=== PATIENT | male | born 1975 | race Caucasian/White ===

== ENCOUNTER 2018-08-17 08:30 | Emergency (ER) | payer OTHER ==
[~2018-08-17] VITALS: Ht 165.1 cm; Wt 59.0 kg
[2018-08-17 08:31] VITALS: BP 141/82
--- NOTE | 2018-08-17 08:31 | NUR ---
PT AMBULATES TO BED 11
--- NOTE | 2018-08-17 08:36 | NUR ---
A 43 M BROUGHT SELF DUE TO CHEST PAIN X 1 WEEK. PT. STATES " ABOUT A WEEK AGO THE PAIN STARTED IT COMES ON AND OFF I FEEL LIKE SOMETHING IS STUCK ON MY THROAT AND MY LEFT ARM HAS A PINCHING SENSATION". PT. DENIES ANY N/V/D. DENIES ANY SOB. SKIN WARM AND DRY TO TOUCH. PT. ABLE TO SPEAK IN FULL AND COMPLETE SENTENCES. RR EVEN AND UNLABORED. 5/10 INTERMITTENT CHEST PAIN WITH PINCHING SENSATION IN L ARM. SAFETY PRECAUTIONS IMPLEMENTED. ER MD HERRERA MADE AWARE. WILL CONTINUE TO MONITOR.
[2018-08-17] MEDS ORDERED: IPRATROPIUM 0.02% 0.5 MG/2.5 ML NEBU INH ONE (08:55)
[2018-08-17] MEDS ORDERED: predniSONE 20 MG TAB PO ONE (08:55)
[2018-08-17] MEDS ORDERED: ALBUTEROL 0.083% 2.5 MG/3 ML NEBU INH ONE (08:55)
--- NOTE | 2018-08-17 08:55 | NUR ---
CALLED RT FOR TREATMENT
--- NOTE | 2018-08-17 09:00 | NUR ---
X RAY AT BEDSIDE AT THIS TIME
--- NOTE | 2018-08-17 09:04 | NUR ---
ADMITTING DX: CHETS PAIN HX: ASTHMA AWAKE AND ALER RESPONSIVE TO INSTRUCTOR ROBOTICS VERBAL COMMANDS C/O SOB NOT INDUCED BY HX EDUCATION PROVIDED TO PATIENT WITH ACKNOWLEDGEMENT ON HHN THERAPY AND RESPIRATORY DRUGS HHN THERAPY GIVEN ORDERED ENCOURAGED PATIENT FOR INTERMITENT DEEP BREATHING DURING THERAPY TOLERATED WELL WITHOUT INCIDENT
--- NOTE | 2018-08-17 09:19 | NUR ---
RT AT BEDSIDE AT THIS TIME.
--- NOTE | 2018-08-17 10:00 | NUR ---
PT. RESTING COMFORTABLY IN BED, RR EVEN AND UNLABORED. VSS.
[2018-08-17 10:25] VITALS: BP 122/64
--- NOTE | 2018-08-17 10:25 | NUR ---
Patient discharged with v/s stable. Written and verbal after care instructions given and explained. Patient alert, oriented and verbalized understanding of instructions. Ambulatory with steady gait. All questions addressed prior to discharge. ID band removed. Patient advised to follow up with PMD. Rx of ALBUTEROL INH,PREDNISONE,AEROCHAMBER given. Patient educated on indication of medication including possible reaction and side effects. Opportunity to ask questions provided and answered.
== END 2018-08-17 10:25 | disposition home or self-care (01) ==
LOC: MED 08:30
DX: J20.9 Acute bronchitis, unspecified (principal); R03.0 Elevated blood-pressure reading, without diagnosis of hypertension
CPT/HCPCS: 71045; 93005; 94640; 99284; J7512; J7613; J7644; Q0092

== ENCOUNTER 2018-09-02 23:14 | Emergency (ER) | payer OTHER ==
[~2018-09-02] VITALS: Ht 165.1 cm; Wt 59.0 kg
[2018-09-02 23:18] VITALS: BP 123/77
[2018-09-02] MEDS ORDERED: KETOROLAC 60 MG/2 ML VIAL IM ONE (23:35)
[2018-09-03 00:51] VITALS: BP 111/62
== END 2018-09-03 00:50 | disposition home or self-care (01) ==
LOC: MED 23:14
DX: S20.212A Contusion of left front wall of thorax, initial encounter (principal); J45.909 Unspecified asthma, uncomplicated; W18.39XA Other fall on same level, initial encounter; Y93.89 Activity, other specified; Y92.89 Other specified places as the place of occurrence of the external cause; Y99.8 Other external cause status
CPT/HCPCS: 96372; 99283; J1885

== ENCOUNTER 2022-06-22 20:34 | Inpatient (IN) | payer OTHER ==
[~2022-06-22] VITALS: Ht 170.2 cm; Wt 61.2 kg
[2022-06-22 20:39] VITALS: BP 170/90
--- NOTE | 2022-06-22 20:42 | NUR ---
TO LOBBY A/W BED AMBULATORY
--- NOTE | 2022-06-22 20:55 | NUR ---
PT AMBULATED TO BED #7
--- NOTE | 2022-06-22 21:02 | NUR ---
47 / M BIB SELF SEVERE STOMACH/VOMITING X 3 DAYS / PT STATES BLACK STOOL. STOOL IS RUNNY , WATERY. PT STATES BURNING PAIN 06/18. PT TOOK PEPTO BISMOL, GATORADE,WATER BUT WILL EVENTUALLY THROW IT UP. SKIN IS PINK/WARM/DRY; AAOX4 WITH EVEN AND STEADY GAIT; LUNGS CLEAR BL; HR EVEN AND REGULAR; PT STATES FEVER OF 99.9 AND SOME CP, DENIES SOB, OR COUGH AT THIS TIME; VSS; HOB ELEVATED; BEDRAILS UP X2; BED DOWN. PT DRINKS MALT LIQUOR X 4 CANS A DAY X 10 YEARS DENIES PMH NO ALLERGIES
--- NOTE | 2022-06-22 21:05 | NUR ---
ERMD EXAMINING PT
[2022-06-22] MEDS ORDERED: PANTOPRAZOLE 40 MG INJ VIAL IVP ONE (21:45)
[2022-06-22] MEDS ORDERED: NACL 0.9% 1,000 ML IV ONE (21:45)
[2022-06-22] MEDS ORDERED: MORPHINE SULFATE 2 MG/ML SYR IVP ONE (21:45)
[2022-06-22] MEDS ORDERED: ONDANSETRON 4 MG/2 ML VIAL IVP ONE (21:45)
[2022-06-22 22:14] LABS: BASOPHILS % (AUTO) 0.4 % (0.0-2.0); EOSINOPHILS % (AUTO) 0.1 % (0.0-4.0); HEMATOCRIT 45.7 % (36-52); HEMOGLOBIN 15.9 g/dL (12.0-18.0); LYMPHOCYTES # (AUTO) 0.8 K/uL (2.0-11.5); LYMPHOCYTES % (AUTO) 7.7 % (20.5-51.1); MEAN CORPUSCULAR HEMOGLOBIN 34 pg (27-31); MEAN CORPUSCULAR HGB CONC 35 g/dL (33-37); MEAN CORPUSCULAR VOLUME 96.7 fL (80-94); MONOCYTES # (AUTO) 0.7 K/uL (0.8-1.0); MONOCYTES % (AUTO) 6.7 % (1.7-9.3); NEUTROPHILS # (AUTO) 9.3 K/uL (1.8-7.7); NEUTROPHILS % (AUTO) 85.1 % (42.2-75.2); PLATELET COUNT (AUTO) 281 K/uL (140-450); RED BLOOD CELL COUNT(AUTO) 4.72 MIL/uL (4.20-6.10); RED CELL DISTRIBUTION WIDTH 12.9 % (11.6-13.7); WHITE BLOOD COUNT (AUTO) 10.9 K/uL (4.8-10.8)
[2022-06-22 22:40] LABS: ALBUMIN 3.4 g/dL (3.4-5.0); ANION GAP 12.6 (8-16); ASPARTATE AMINOTRANSFERASE 9 U/L (15-37); CARBON DIOXIDE 29.6 mmol/L (21-32); CHLORIDE 95 mmol/L (98-107); GFR ARICAN-AMERICAN 104 mL/min (>90); GLUCOSE 139 mg/dL (74-106); LIPASE 50 U/L (73-393); POTASSIUM 3.2 mmol/L (3.5-5.1); SODIUM SERUM 134 mmol/L (136-145); UREA NITROGEN, BLOOD 11 mg/dL (7-18)
--- NOTE | 2022-06-22 22:47 | NUR ---
PT TAKEN TO CT VIA REID
[2022-06-22 23:21] LABS: APPEARANCE,URINE CLEAR (CLEAR); BILIRUBIN,URINE 1+ (NEGATIVE); BLOOD, URINE 2+ (NEGATIVE); COLOR,URINE YELLOW (YELLOW); LEUKOCYTE ESTERASE ,URINE NEGATIVE (NEGATIVE); NITRITE, URINE NEGATIVE (NEGATIVE); UGLUCOSE NEGATIVE (NEGATIVE)
[2022-06-22 23:29] LABS: RBC,URINE 0-5 /HPF (0-5); WBC,URINE 0-5 /HPF (0-5)
[2022-06-22 23:39] LABS: BARBITURATE, URINE NEGATIVE ng/ml (NEG <=200); BENZODIAZEPINE, URINE M ng/mL (NEG <=200); CANNABINOID, URINE NEGATIVE ng/mL (NEG <=50); COCAINE, URINE NEGATIVE ng/mL (NEG <=300); OPIATE, URINE POSITIVE ng/mL (NEG <=2000); PHENCYCLIDINE SCREEN,URINE NEGATIVE ng/mL (NEG <=25)
[2022-06-23] MEDS ORDERED: PIPERACILLIN/TAZOBACTAM 3.375 GM in DEXTROSE 5% 50 ML IV ONE (00:30)
[2022-06-23] MEDS ORDERED: NACL 0.9% 1,000 ML IV ONE ×2 (00:30)
[2022-06-23] MEDS ORDERED: KETOROLAC 30 MG/ML VIAL IVP ONE (00:55)
[2022-06-23] MEDS ORDERED: PIPERACILLIN/TAZOBACTAM 3.375 GM VIAL IV ONE (01:02)
--- NOTE | 2022-06-23 02:00 | NUR ---
Patient appears to be resting comfortably in bed. Vital Signs within normal limits. Respirations even and unlabored.
[2022-06-23] MEDS ORDERED: ONDANSETRON 4 MG/2 ML VIAL IVP PRN (02:35)
[2022-06-23] MEDS ORDERED: ACETAMINOPHEN 325 MG TAB PO PRN (02:35)
[2022-06-23] MEDS ORDERED: POTASSIUM CHLORIDE 10 MEQ TABER PO SCH (02:50)
[2022-06-23] MEDS ORDERED: POTASSIUM CHLORIDE 10 MEQ in NACL 0.9% 1,000 ML IV SCH (02:50)
[2022-06-23] MEDS: NACL 0.9% 1,000 ML IV SCH ×3 (03:35→22:35)
[2022-06-23 04:00] VITALS: BP 103/57
--- NOTE | 2022-06-23 04:00 | NUR ---
Patient will be admitted to care of DR. DENSON. Admited to MED SURG. Will go to room 122B. Belongings list completed. Report to BILL.
--- NOTE | 2022-06-23 04:15 | NUR ---
RECEIVED REPORT FROM ER NURSE FOR CONTINUITY OF CARE. PATIENT IS ON ROOM AIR, BREATHING NORMAL WITH SYMMETRICAL RISE AND FALL OF CHEST. IV IS 18G LAC, PATIENT RUNNING NS 100ML. PATIENT IS A&O X4. ADMISSION VITALS ARE: 97.5 TEMP, HR 58, BP 103/57, O2 97, RR 16. BED IS IN LOWEST POSITION, WHEELS LOCKED, CALL LIGHT IN PLACE. WILL CONTINUE TO OBSERVE.
--- NOTE | 2022-06-23 04:19 | NUR ---
The patient's care was reviewed and supervised by Cathie Hinkle RN.
[2022-06-23] MEDS: metroNIDAZOLE 500 MG/NS PREMIX 100 ML IV SCH ×3 (05:34→20:45)
--- NOTE | 2022-06-23 05:50 | NUR ---
ADMINISTERED IVPB TO PATIENT. PATIENT STATED PAIN OF 6/10. PATIENT'S BP WAS TOO LOW FOR MORPHINE, GAVE TYLENOL INSTEAD. PATIENT ALSO RECEIVED 0250 POTASSIUM MEDICATION (KDUR 20MEQ) ORDERED BY PHYSICIAN. PATIENT TOLERATED MEDICATION WELL. BREATHING WAS NORMAL. WILL CONTINUE TO OBSERVE PATIENT.
[2022-06-23] MEDS ORDERED: LORazepam 1 MG TAB PO PRN (07:20)
--- NOTE | 2022-06-23 07:50 | NUR ---
ENDORSED CONTINUITY OF CARE TO DAY SHIFT NURSE. PATIENT IS STABLE.
--- NOTE | 2022-06-23 07:51 | NUR ---
RECEIVED REPORT FORM DOUGHNUT GLAZIER NURSE FOR CONTINUITY OF CARE. PT IS SLEEPING, EASILY AROUSABLE BY VERBAL STIMULI. RESPIRATIONS EVEN AND UNLABORED ON RA. NO DISTRESS NOTED. A&O4, ABLE TO COMMUNICATE NEEDS. PT ON NPO. PT AND PHOTOGEOLOGIST MADE AWARE AND SIGNS IN PLACE. IV SITE AT LAC 18G RUNNING NS [id number]. CALL LIGHT WITHIN REACH. SAFETY PRECAUTIONS IN PLACE. WILL CONTINUE TO MONITOR.
[2022-06-23 08:00] VITALS: BP 97/58
--- NOTE | 2022-06-23 09:06 | NUR ---
PATIENT HAS BEEN SCREENED AND CATEGORIZED HIGH NUTRITION RISK. PATIENT WILL BE SEEN WITHIN 1-2 DAYS OF ADMISSION. 06/23/22-06/24/22 RECEIVED REFERRAL FOR NAUSEA, VOMITING, DIARRHEA +3 DAYS. REVIEWED BY BABITA CARRANZA RD
--- NOTE | 2022-06-23 10:15 | NUR ---
IV ABX ADMINISTERED BY GABRIELA REID. NO ADVERSE REACTION NOTED. WILL CONTINUE TO MONITOR.
--- NOTE | 2022-06-23 12:40 | NUR ---
PT SEEN AND CHECKED BY DR RODRIGUEZ. DR RODRIGUEZ ORDERED CT FOR DRAINAGE OF ABSCESS AND CLEAR LIQUID DIET.
--- NOTE | 2022-06-23 13:25 | NUR ---
IV ABX ADMINISTERED BY GABRIELA REID. NO ADVERSE REACTION NOTED. WILL CONTINUE TO MONITOR.
--- NOTE | 2022-06-23 13:50 | NUR ---
SPOKE TO DR CHAMP CANTU OF RADIOLOGY REGARDING THE PROCEDURE ORDERED BY . DR CANTU SAID HE'LL SPEAK TO DR RODRIGUEZ BECAUSE THE PROCEDURE IS NOT POSSIBLE BECAUSE OF JUST TOO SMALL ABSCESS SEEN. DR CANTU SAID HE'LL GET BACK TO THE NURSE FOR UPDATE.
--- NOTE | 2022-06-23 15:46 | NUR ---
DC PLANNING SW MET WITH PATIENT AT BEDSIDE TO COMPLETE ASSESSMENT. PT REPORTS LIVING AT THE ADDRESS LISTED WITH HIS FAMILY, PATIENT HAS RESIDED AT ADDRESS FOR 5 YEARS. PT IDENTIFIES EMERGENCY CONTACT AND MDM GIULIANA BLANC (PARTNER) [phone]. PT DENIES AD IN PLACE AND ACCEPTED PACKET PROVIDED BY SW. PT REPORTS BEING INCONSISTENT WITH MEETING WITH PCP; LAST VISIT 2 YRS AGO. SW SPOKE WITH PATIENT ABOUT THE IMPORTANCE OF FOLLOW UP CARE, PATIENT WAS RECEPTIVE AND PROVIDED SW WITH PERMISSION TO SCHEDULE FOLLOW UP APPT, ONCE CLEARED FOR DC. PATIENT REPORTS NOT TAKING MEDICATION IT IS NOT NEEDED. PT DENIES BARRIERS IN ACCESSING NEEDED MEDICATION AND REPORTS PICKING UP MEDICATION FROM [facility] IN [place], WHEN NEEDED. PATIENT REPORTS ADEQUATE FOOD SOURCE AND DENIES FOOD INSECURITY. PT INDEPENDENT IN ALL ACTIVITIES AND DENIES USE OF DME.NO ASSISTANCE WITH ADL'S REQUIRED. PT DENIES MENTAL HEALTH HX. PT REPORTS USP ALCOHOL USE; 10+YRS. PATIENT REPORTS BEING SOBER FOR 6 MONTHS, 5 YEARS AGO. SW PROVIDED PATIENT WITH PSYCHOEDUCATION ON [employer] ALCOHOL USE. PATIENT WAS RECEPTIVE AND ACCEPTED ALCOHOL/SUBSTANCE USE RESOURCES. PT REPORTS DC PLAN IS TO RETURN HOME ONCE CLINICALLY STABLE. PATIENT INQUIRED ON TRANSPORTATION HOME. SW ENCOURAGED PATIENT TO NOTIFY NURSE WHO WILL SET UP TRANSPORTATION ONCE CLEARED FOR DC. Addendum: 06/27/22 at 1224 by Kadie Lopez SW OUTREACHED TO PATIENTS PCP OFFICE AT [phone] AND SPOKE WITH DARRELL. APPT WAS SCHEDULED FOR 07/04/22 AT 3:[address] [place] [id number] [facility] [id number]. PATIENT WAS PROVIDED WITH APPT CARD WITH APPT DETAILS THAT INCLUDED; DATE, TIME, ADDRESS, PHONE NUMBER AND
[2022-06-23 16:00] VITALS: BP 113/59
[2022-06-23] MEDS: MORPHINE SULFATE 2 MG/ML SYR IVP PRN ×2 (16:54→23:10)
--- NOTE | 2022-06-23 16:54 | NUR ---
PT COMPLAINED OF ABD PAIN 07/19. PRN PAIN MED ADMINISTERED BY GABRIELA REID. NO ADVERSE REACTION NOTED. WILL CONTINUE TO MONITOR.
--- NOTE | 2022-06-23 18:56 | NUR ---
PT ATE DINNER. PT STATED HE STILL HAS ABD PAIN WORST WHEN HE MOVES AND FELLING BLOATED BECAUSE OF THE FOOD BUT MORPHINE WORKS WELL FOR HIS PAIN. WILL ENDORSE TO ELECTRIC SWITCH TESTER NURSE.
--- NOTE | 2022-06-23 19:54 | NUR ---
ENDORSED PT TO EARLY INTERVENTION SPECIALIST NURSE FOR CONTINUITY OF CARE. ALL NEEDS MET THROUGHOUT SHIFT. PT IS STABLE.
--- NOTE | 2022-06-23 20:00 | NUR ---
RECEIVED BEDSIDE REPORT FROM DAY NURSE REGARDING THE PT FOR CONTINUITY OF CARE. PT A/A/OX4, LAYING IN BED WATCHING TV. PT NOT IN ANY DISTRESS AND NO COMPLAIN AT THIS TIME. PT SITTING UPRIGHT IN BED WATCHING TV. IV FLUID INFUSING ORDERED. DISCUSSED POC WITH THE PT AND PT VERBALIZED UNDERSTANDING . CALL LIGHT WITHIN REACH. WILL CONTINUE OBSERVATION.
[2022-06-23] MEDS: LORazepam 1 MG TAB PO SCH (20:49)
--- NOTE | 2022-06-23 22:00 | NUR ---
ALL DUE MEDS GIVEN ORDERED. NO ADVERSE DRUGS REACTION NOTED AND NO COMPLAIN FROM THE PATIENT. WILL CONTINUE OBSERVATION.
[2022-06-24] VITALS: BP 112/66
--- NOTE | 2022-06-24 | NUR ---
PATIENT VITALS SIGNS STABLE, AFEBRILE, SATING 96% ON RA. NO COMPLAIN OF PAIN AT THIS TIME. CALL LIGHT WITHIN REACH. WILL CONTINUE OBSERVATION.
--- NOTE | 2022-06-24 02:00 | NUR ---
PATIENT ASLEEP AT THIS TIME. VISIBLE CHEST RISE AND FALL NOTED. PT NOT IN ANY DISTRESS. WILL CONTINUE OBSERVATION.
--- NOTE | 2022-06-24 04:00 | NUR ---
MADE ROUNDS AGAIN , PT STILL ASLEEP AND NOT IN ANY DISTRESS. WILL CONTINUE OBSERVATION
[2022-06-24] MEDS: NACL 0.9% 1,000 ML IV SCH ×3 (04:25→19:30)
[2022-06-24] MEDS: metroNIDAZOLE 500 MG/NS PREMIX 100 ML IV SCH ×3 (04:25→20:25)
[2022-06-24] MEDS: LORazepam 1 MG TAB PO SCH ×3 (04:26→20:25)
[2022-06-24 05:47] LABS: BASOPHILS % (AUTO) 0.5 % (0.0-2.0); EOSINOPHILS % (AUTO) 0.6 % (0.0-4.0); HEMATOCRIT 36.3 % (36-52); HEMOGLOBIN 12.4 g/dL (12.0-18.0); LYMPHOCYTES # (AUTO) 0.8 K/uL (2.0-11.5); LYMPHOCYTES % (AUTO) 11.3 % (20.5-51.1); MEAN CORPUSCULAR HEMOGLOBIN 34 pg (27-31); MEAN CORPUSCULAR HGB CONC 34 g/dL (33-37); MEAN CORPUSCULAR VOLUME 98.4 fL (80-94); MONOCYTES # (AUTO) 0.6 K/uL (0.8-1.0); MONOCYTES % (AUTO) 9.1 % (1.7-9.3); NEUTROPHILS # (AUTO) 5.5 K/uL (1.8-7.7); NEUTROPHILS % (AUTO) 78.5 % (42.2-75.2); PLATELET COUNT (AUTO) 257 K/uL (140-450); RED BLOOD CELL COUNT(AUTO) 3.69 MIL/uL (4.20-6.10); RED CELL DISTRIBUTION WIDTH 12.6 % (11.6-13.7)
--- NOTE | 2022-06-24 06:18 | NUR ---
NO ACUTE EVENT THROUGHOUT THE NIGHT. PT STABLE AND NOT IN ANY DISTRESS. NO COMPLAIN AT THIS TIME. ALL NEEDS ATTENDED. WILL ENDORSE THE PATIENT TO THE ONCOMING NURSE FOR CONTINUITY OF CARE.
[2022-06-24 06:38] LABS: ALBUMIN 2.3 g/dL (3.4-5.0); ANION GAP 12.5 (8-16); CARBON DIOXIDE 25.8 mmol/L (21-32); CREATININE 0.8 mg/dL (0.6-1.3); MAGNESIUM 1.9 mg/dL (1.8-2.4); PHOSPHORUS 2.3 mg/dL (2.5-4.9); POTASSIUM 3.3 mmol/L (3.5-5.1); TOTAL BILIRUBIN 1.5 mg/dL (0.0-1.0)
--- NOTE | 2022-06-24 07:20 | NUR ---
ENDORSED PATIENT TO THE ONCOMING NURSE. PATIENT STABLE AND NOT IN DISTRESS. SIGNING OFF.
--- NOTE | 2022-06-24 07:30 | NUR ---
RECEIVED REPORT FROM ASSISTANT MANAGER RETAIL NURSE FOR CONTINUITY OF CARE, POC DISCUSSED. PT IS ASLEEP IN BED ON RA WITH CHEST RISING AND FALLING EVEN AND UNLABORED. NO S/S OF ACUTE DISTRESS. RUNNING NS @100. ALL SAFETY MEASURES IN PLACE, CALL LIGHT WITHIN REACH. WILL CONTINUE TO MONITOR.
[2022-06-24 08:00] VITALS: BP 105/63
[2022-06-24] MEDS: FOLIC ACID 1 MG TAB PO SCH (09:10)
[2022-06-24] MEDS: MULTIVITAMIN 1 TAB PO SCH (09:10)
[2022-06-24] MEDS: THIAMINE 100 MG TAB PO SCH (09:10)
[2022-06-24] MEDS: MORPHINE SULFATE 2 MG/ML SYR IVP PRN ×3 (09:12→19:40)
--- NOTE | 2022-06-24 09:12 | NUR ---
SCOTT MEDICATION ADMINISTERED PER MD ORDER, PT TOLERATED ADMINISTRATION. IV PATENT AND INTACT. ASSESS BP PRIOR TO ADMINISTRATION OF PAIN MEDICATION OF 07/19. PT STABLE, WILL REASSESS AFTER ADMINISTRATION. EDUCATION PROVIDED TO PT REGARDING THE PAIN MEDICATION, PT VERBALIZED UNDERSTANDING. ASSESSMENT COMPLETE OF PT, SEE INTERVENTIONS. ALL NEEDS ARE CURRENTLY BEING MET, ALL SAFETY MEASURES IN PLACE, CALL LIGHT WITHIN REACH. WILL CONTINUE TO MONITOR.
--- NOTE | 2022-06-24 10:12 | NUR ---
REASSESSED PT PAIN AND BLOOD PRESSURE. PT REPORTS PAIN TOLERABLE AND BLOOD PRESSURE STABLE. ALL SAFETY MEASURES IN PLACE, CALL LIGHT WITHIN REACH. WILL CONTINUE TO MONITOR.
--- NOTE | 2022-06-24 12:34 | NUR ---
SCOTT MEDICATION ADMINISTERED PER MD ORDER, IV PATENT AND INTACT. ASSESS BLOOD PRESSURE PRIOR TO ADMINISTRATION, STABLE. PT REPORTS ALL NEEDS CURRENTLY BEING MET. ALL SAFETY MEASURES IN PLACE, CALL LIGHT WITHIN REACH. WILL CONTINUE TO MONITOR.
--- NOTE | 2022-06-24 13:19 | NUR ---
REASSESSED PT, PT STABLE WITH FAMILY AT BEDSIDE.
--- NOTE | 2022-06-24 14:32 | NUR ---
06/24/22 RD INITIAL ASSESSMENT COMPLETED PLEASE REFER TO NUTRITION ASSESSMENT UNDER CARE ACTIVITY FOR ESTIMATED NUTRITIONAL NEEDS. 1. WHEN/ IF MEDICALLY APPROPRIATE RECOMMEND LOW FIBER DIET - CONTINUE CLEAR LIQUID DIET UNTIL FURTHER NOTICE 2. RD WILL CONTINUE TO MONITOR PO INTAKE 3. RD TO FOLLOW-UP 3-5 DAYS, MODERATE RISK REVIEWED BY BABITA CARRANZA RD
--- NOTE | 2022-06-24 14:39 | NUR ---
PT CALLED REPORTING NEEDING PAIN MEDICATION, EDUCATION PROVIDED REGARDING LOW BP AND JUST RECEIVING SCOTT ATIVAN. STATED WE WILL REASSESS HIS BLOOD PRESSURE AT 1530, IF STABLE, WILL ADMINISTER PAIN MEDICATION. PT VERBALIZED UNDERSTANDING AND AGREED TO PLAN OF CARE. ALL SAFETY MEASURES IN PLACE, CALL LIGHT WITHIN REACH. WILL CONTINUE TO MONITOR.
--- NOTE | 2022-06-24 15:56 | NUR ---
PRN PAIN MEDICATION ADMINISTERED PER MD ORDER, PT TOLERATED ADMINISTRATION. VSS. IV PATENT AND INTACT. MD AT BEDSIDE ASSESSING PT. POC DISCUSSED. ALL SAFETY MEASURES IN PLACE, CALL LIGHT WITHIN REACH. WILL CONTINUE TO MONITOR.
[2022-06-24 16:00] VITALS: BP 103/64
--- NOTE | 2022-06-24 17:14 | NUR ---
PT STABLE IN BED WITH NO ACUTE S/S OF DISTRESS, ALL SAFETY MEASURES IN PLACE, CALL LIGHT WITHIN REACH. WILL CONTINUE TO MONITOR.
--- NOTE | 2022-06-24 18:41 | NUR ---
ALL NEEDS HAVE BEEN MET THROUGHOUT THE SHIFT, ALL SAFETY MEASURES IN PLACE, CALL LIGHT WITHIN REACH. WILL ENDORSE TO FIRE CONTROL TECHNICIAN NURSE.
--- NOTE | 2022-06-24 19:05 | NUR ---
RECEIVED PATIENT IN BED, AWAKE, ALERT AND ORIENTED. NO ACUTE RESPIRATORY DISTRESS NOTED. SKIN WARM AND DRY TO TOUCH. BED IN THE LOWEST AND LOCKED POSITION FOR SAFETY, CALL LIGHT IN REACH.
--- NOTE | 2022-06-24 19:40 | NUR ---
COMPLAINING OF 8/10 ABDOMINAL PAIN, MEDICATED ORDERED.
--- NOTE | 2022-06-24 19:44 | NUR ---
K-3.[address] DENSON, NEW ORDER GIVEN AND WILL CARRY OUT.
[2022-06-24] MEDS ORDERED: POTASSIUM CHLORIDE 10 MEQ TABER PO ONE (19:45)
[2022-06-24 20:00] VITALS: BP 109/75
--- NOTE | 2022-06-24 20:40 | NUR ---
RE-ASSESSED FOR PAIN, PT DENIES PAIN AT THIS TIME. WATCHING TV. CALL LIGHT WITHIN REACH.
--- NOTE | 2022-06-25 00:02 | NUR ---
PATIENT IS RESTING COMFORTABLY IN BED. NO S/SX OF PAIN NOR DISCOMFORT. CALL LIGHT IN REACH.
--- NOTE | 2022-06-25 02:06 | NUR ---
ROUNDING DONE. PATIENT IS ASLEEP. BREATHING EVEN AND UNLABORED. CALL LIGHT WITHIN REACH.
[2022-06-25 04:00] VITALS: BP 123/71
[2022-06-25] MEDS: LORazepam 1 MG TAB PO SCH ×3 (04:05→21:25)
[2022-06-25] MEDS: metroNIDAZOLE 500 MG/NS PREMIX 100 ML IV SCH ×3 (04:05→21:24)
--- NOTE | 2022-06-25 06:14 | NUR ---
PATIENT IS ASLEEP. NO S/SX OF PAIN NOR DISCOMFORT. ALL NEEDS ATTENDED TO. SAFETY PRECAUTIONS MAINTAINED DURING THE SHIFT, CALL LIGHT REMAINED WITHIN REACH.
[2022-06-25] MEDS: NACL 0.9% 1,000 ML IV SCH ×2 (06:48→21:34)
--- NOTE | 2022-06-25 07:30 | NUR ---
RECEIVED REPORT FROM ASSOCIATE RELATIONS SPECIALIST FOR CONTINUITY OF CARE, ASSOCIATE RELATIONS SPECIALIST EVENTS REVIEWED. NO CHANGE IN POC. PT STABLE IN BED WITH NO S/S OF DISTRESS ON ROOM AIR. ALL SAFETY MEASURES IN PLACE, CALL LIGHT WITHIN REACH. WILL CONTINUE TO MONITOR.
[2022-06-25 08:00] VITALS: BP 123/82
[2022-06-25] MEDS: MULTIVITAMIN 1 TAB PO SCH (09:19)
[2022-06-25] MEDS: THIAMINE 100 MG TAB PO SCH (09:19)
[2022-06-25] MEDS: MORPHINE SULFATE 2 MG/ML SYR IVP PRN ×3 (09:19→21:26)
[2022-06-25] MEDS: FOLIC ACID 1 MG TAB PO SCH (09:19)
--- NOTE | 2022-06-25 09:20 | NUR ---
SCOTT MEDICATION ADMINISTERED PER MD ORDER, PT TOLERATED ADMINISTRATION. BP ASSESSED FOR PAIN MEDICATION, PT REPORTED 8/10 PAIN. WILL MEDICATE PER MD ORDER. PT REPORTS ALL OTHER NEEDS ARE BEING MET. ALL SAFETY MEASURES IN PLACE, CALL LIGHT WITHIN REACH. WILL CONTINUE TO MONITOR.
--- NOTE | 2022-06-25 12:15 | NUR ---
SCOTT MEDICATION ADMINISTERED PER MD ORDER, PT TOLERATED ADMINISTRATION. PT AT BEDSIDE, ALL QUESTIONS ANSWERED. PT STABLE WITH NO COMPLAINTS AT THIS TIME. ALL NEEDS ARE MET AT THIS TIME. ALL SAFETY MEASURES IN PLACE, CALL LIGHT WITHIN REACH. WILL CONTINUE TO MONITOR.
--- NOTE | 2022-06-25 13:45 | NUR ---
CALLED CT REGARDING ORDER FOR ABD/PELVIS CT WITH ORAL CONTRAST. STATED THEY HAVE A COUPLE MORE PROCEDURES AND WHEN THE PT DRINKS THE ORAL CONTRAST, IT WILL BE 2 HOURS AND HE CAN GET THE SCAN.
--- NOTE | 2022-06-25 14:22 | NUR ---
ASSESSED PT BLOOD PRESSURE, 113/77, PT REPORTS PAIN. MEDICATED PER MD ORDER, PT TOLERATED ADMINISTRATION. IV PATENT AND INTACT. POC DISCUSSED. ALL SAFETY MEASURES IN PLACE, CALL LIGHT WITHIN REACH. WILL CONTINUE TO MONITOR.
--- NOTE | 2022-06-25 15:11 | NUR ---
MD AT BEDSIDE, PT STABLE WITH AT BEDSIDE. ALL QUESTIONS ANSWERED. ALL SAFETY MEASURES IN PLACE, CALL LIGHT WITHIN REACH. WILL CONTINUE TO MONITOR.
[2022-06-25 16:00] VITALS: BP 130/79
--- NOTE | 2022-06-25 18:12 | NUR ---
RADIOLOGY AT BEDSIDE, GIVING PT THE CONTRAST, STATED HE WILL COMEBACK IN 2 HOURS TO PREFORM THE SCAN. WILL ENDORSE TO COLOR SPRAYER.
--- NOTE | 2022-06-25 18:22 | NUR ---
CALLED RADIOLOGY TO CLARIFY IF PT CAN HAVE HIS DINNER TRAY WITH THE ORAL CONTRAST, STATED THAT YES HE IS ALLOWED TO HAVE THE DINNER TRAY.
--- NOTE | 2022-06-25 18:43 | NUR ---
ALL NEEDS HAVE BEEN MET THROUGHOUT THE SHIFT. PT REMAINED STABLE. ALL SAFETY MEASURES IN PLACE, CALL LIGHT WITHIN REACH. WILL ENDORSE TO STUFFED CASING TIER.
--- NOTE | 2022-06-25 20:30 | NUR ---
RECEIVED REPORT ON PT. PT WENT FOR CT SCAN OF ABDOMEN/PELVIS FOR ABSCESS. LEFT AT 2057 VIA W/C RETURNED @2114. PT AMBULATES. 2100 MEDS GIVEN INCLUDING MS04 2MG IVP FOR 7/10 ABDOMINAL PAIN. RECEIVES [id number] FOR ETOH WITHDRAWAL. ALL SAFETY MEASURES IN PLACE. BED LOW AND LOCKED. WILL CONTINUE TO MONITOR.
[2022-06-26] VITALS: BP 116/86
--- NOTE | 2022-06-26 02:30 | NUR ---
FREQ ROUNDS. PT IS STABLE AND ASLEEP IN BED. RR EVEN AND UNLABORED WITH EQUAL CHEST RISE. ALL SAFETY MEASURES IN PLACE. CQALL LIGHT WITHIN REACH. WILL CONTINUE TO MONITOR.
[2022-06-26] MEDS: metroNIDAZOLE 500 MG/NS PREMIX 100 ML IV SCH ×3 (04:26→21:04)
[2022-06-26] MEDS: LORazepam 1 MG TAB PO SCH ×3 (04:27→21:05)
--- NOTE | 2022-06-26 05:44 | NUR ---
FLAGYL AND ATIVAN GIVEN SCHEDULED. NAD. DENIES PAIN CALL LIGHT WITHIN REACH. WILL CONTINUE WITH FREQ ROUNDS.
[2022-06-26 07:11] LABS: BASOPHILS % (AUTO) 0.7 % (0.0-2.0); EOSINOPHILS # (AUTO) 0.2 K/uL (0-0.4); EOSINOPHILS % (AUTO) 3.4 % (0.0-4.0); HEMATOCRIT 38.3 % (36-52); LYMPHOCYTES # (AUTO) 1.1 K/uL (2.0-11.5); LYMPHOCYTES % (AUTO) 15.8 % (20.5-51.1); MEAN CORPUSCULAR HEMOGLOBIN 33 pg (27-31); MEAN CORPUSCULAR HGB CONC 34 g/dL (33-37); MEAN CORPUSCULAR VOLUME 97.8 fL (80-94); MONOCYTES # (AUTO) 0.6 K/uL (0.8-1.0); MONOCYTES % (AUTO) 9.6 % (1.7-9.3); NEUTROPHILS # (AUTO) 4.7 K/uL (1.8-7.7); NEUTROPHILS % (AUTO) 70.5 % (42.2-75.2); PLATELET COUNT (AUTO) 335 K/uL (140-450); RED BLOOD CELL COUNT(AUTO) 3.91 MIL/uL (4.20-6.10); RED CELL DISTRIBUTION WIDTH 12.7 % (11.6-13.7); WHITE BLOOD COUNT (AUTO) 6.7 K/uL (4.8-10.8)
[2022-06-26 08:00] VITALS: BP 109/43
--- NOTE | 2022-06-26 08:15 | NUR ---
RECEIVED PT FROM SWITCHBOARD CLERK, NIGHT EVENTS DISCUSSED. POC DISCUSSED. PT STABLE IN BED WITH NO ACUTE S/S OF DISTRESS, REPORTS 7/10 PAIN, WILL MEDICATE PER MD. VSS. ALL SAFETY MEASURES IN PLACE, CALL LIGHT WITHIN REACH. WILL CONTINUE TO MONITOR.
[2022-06-26 08:25] LABS: ANION GAP 12.8 (8-16); CARBON DIOXIDE 25.8 mmol/L (21-32); CREATININE 0.7 mg/dL (0.6-1.3); POTASSIUM 3.6 mmol/L (3.5-5.1)
[2022-06-26] MEDS: MORPHINE SULFATE 2 MG/ML SYR IVP PRN (08:58)
[2022-06-26] MEDS: MULTIVITAMIN 1 TAB PO SCH (08:58)
--- NOTE | 2022-06-26 08:58 | NUR ---
VSS. PRN PAIN MEDICATION ADMINISTERED PER MD ORDER, PT TOLERATED ADMINISTRATION. IV PATENT AND INTACT. ALL SAFETY MEASURES IN PLACE, CALL LIGHT WITHIN REACH. WILL CONTINUE TO MONITOR.
[2022-06-26] MEDS: FOLIC ACID 1 MG TAB PO SCH (08:59)
[2022-06-26] MEDS: THIAMINE 100 MG TAB PO SCH (08:59)
--- NOTE | 2022-06-26 09:50 | NUR ---
SCOTT MEDICATION ADMINISTERED PER MD ORDER, PT TOLERATED ADMINISTRATION. VERBALIZED UNDERSTANDING. NEW IV FLUIDS ADMINISTERED. POC DISCUSSED. PT REPORTS ALL NEEDS ARE MET AT THIS TIME. COMMUNICATION BOARD UPDATED. ALL SAFETY MEASURES IN PLACE, CALL LIGHT WITHIN REACH. WILL CONTINUE TO MONITOR.
--- NOTE | 2022-06-26 10:30 | NUR ---
MD CALLED, ASKING HOW PT IS TOLERATING CLEAR LIQUIDS. PT TOLERATING. MD TO ADVANCE DIET TO SOFT.
[2022-06-26] MEDS: NACL 0.9% 1,000 ML IV SCH ×2 (10:40→20:54)
--- NOTE | 2022-06-26 13:00 | NUR ---
VSS, SCOTT MEDICATION ADMINISTERED PER MD ORDER. PT TOLERATED ADMINISTRATION. PT SITTING UP IN BED EATING BREAKFAST, REPORTS ALL NEEDS ARE MET. ALL SAFETY MEASURES IN PLACE, CALL LIGHT WITHIN REACH. WILL CONTINUE TO MONITOR.
[2022-06-26 16:00] VITALS: BP 97/56
--- NOTE | 2022-06-26 16:21 | NUR ---
PT STATING HE IS IN PAIN, EDUCATED HIM THAT HIS BLOOD PRESSURE IS TOO LOW FOR MORPHINE. PT VERBALIZED UNDERSTANDING AND STATED HE WILL WAIT. PT STABLE, ALL SAFETY MEASURES IN PLACE, CALL LIGHT WITHIN REACH. WILL CONTINUE TO MONITOR
[2022-06-26] MEDS: HYDROcodone/APAP 5/325 MG 1 TAB TAB PO PRN (18:27)
--- NOTE | 2022-06-26 18:27 | NUR ---
PRN PAIN MEDICATION ADMINISTERED PER MD ORDER, PT TOLERATED ADMINISTRATION. EDUCATION PROVIDED AND POC DISCUSSED. ALL QUESTIONS HAVE BEEN ANSWERED. ALL SAFETY MEASURES IN PLACE, CALL LIGHT WITHIN REACH. WILL CONTINUE TO MONITOR.
--- NOTE | 2022-06-26 18:57 | NUR ---
PT STABLE IN BED WILL ENDORSE POC TO CHILDREN'S MINISTRIES DIRECTOR.
--- NOTE | 2022-06-26 19:10 | NUR ---
RECEIVED ENDORSEMENT FROM DAY SHIFT NURSE FOR CONTINUITY OF CARE. PT IS AWAKE , ALERT AND RESPONSIVE VERBALLY. PT DOES NOT COMPLAINTS OF PAIN OR DISCOMFORT. SALINE LOCK IS INTACT AND PATENT. IV FLUID IS INFUSING WELL, NO NOTED ANY REDNESS/RASHES OR SWELLING ON IV SITE. SKIN INTACT, NO SKIN PROBLEM. PT IS AMBULATING TO RESTROOM INDEPENDENTLY WITH STEADY GAIT. CONTINUE MONITORING.
--- NOTE | 2022-06-26 21:24 | NUR ---
SALINE LOCK IS LEAKING AND DISLODGED, IV SITE IS BULGING. DISCONTINUE SALINE LOCK.
--- NOTE | 2022-06-26 22:00 | NUR ---
A NEW IV SITE REINSERTED ON RIGHT FOREARM WITH GOOD BLOOD FLOW, 22G, PT TOLERATES WELL, VERBALIZED NO PAIN.
[2022-06-27] VITALS: BP 107/63
[2022-06-27] MEDS: metroNIDAZOLE 500 MG/NS PREMIX 100 ML IV SCH ×3 (05:38→12:13)
[2022-06-27] MEDS: LORazepam 1 MG TAB PO SCH ×2 (05:38→12:06)
--- NOTE | 2022-06-27 05:45 | NUR ---
AM MEDICATION ADMINISTERED ORDER, PT COOPERATIVE. NO SIDE REACTION OF MEDICATION.
[2022-06-27] MEDS: NACL 0.9% 1,000 ML IV SCH (06:35)
[2022-06-27 07:15] LABS: BASOPHILS # (AUTO) 0.1 K/uL (0.00-0.22); EOSINOPHILS # (AUTO) 0.4 K/uL (0-0.4); EOSINOPHILS % (AUTO) 4.8 % (0.0-4.0); LYMPHOCYTES # (AUTO) 1.3 K/uL (2.0-11.5); MEAN CORPUSCULAR HEMOGLOBIN 33 pg (27-31); MEAN CORPUSCULAR HGB CONC 34 g/dL (33-37); MEAN CORPUSCULAR VOLUME 98.1 fL (80-94); MONOCYTES # (AUTO) 0.6 K/uL (0.8-1.0); MONOCYTES % (AUTO) 8.7 % (1.7-9.3); NEUTROPHILS # (AUTO) 5.1 K/uL (1.8-7.7); NEUTROPHILS % (AUTO) 68.5 % (42.2-75.2); PLATELET COUNT (AUTO) 355 K/uL (140-450); RED BLOOD CELL COUNT(AUTO) 3.87 MIL/uL (4.20-6.10); RED CELL DISTRIBUTION WIDTH 12.9 % (11.6-13.7); WHITE BLOOD COUNT (AUTO) 7.4 K/uL (4.8-10.8)
[2022-06-27 07:18] LABS: ANION GAP 9.7 (8-16); CARBON DIOXIDE 27.9 mmol/L (21-32); CREATININE 0.7 mg/dL (0.6-1.3); POTASSIUM 3.6 mmol/L (3.5-5.1)
--- NOTE | 2022-06-27 07:22 | NUR ---
PT IS ON STABLE CONDITION. ALL SAFETY MEASURES IN PLACE. ENDORSED TO DAY SHIFT NURSE FOR CONTINUITY OF CARE.
--- NOTE | 2022-06-27 07:30 | NUR ---
RECEIVED REPORT FROM [facility] NURSE. PT A/O X4. ABLE TO MAKE NEEDS KNOWN. DENIES PAIN AT THIS TIME. NO SOB OR RESPIRATORY DISTRESS. PT RESTING COMFORTABLY. IVF INFUSING. PT IS AMBULATORY. NEEDS ALL MET AT THIS TIME. POC DISCUSSED. ALL SAFETY MEASURES IN PLACE.
[2022-06-27 08:00] VITALS: BP 107/64
[2022-06-27] MEDS: HYDROcodone/APAP 5/325 MG 1 TAB TAB PO PRN (09:07)
[2022-06-27] MEDS: MULTIVITAMIN 1 TAB PO SCH (09:07)
[2022-06-27] MEDS: FOLIC ACID 1 MG TAB PO SCH (09:08)
[2022-06-27] MEDS: THIAMINE 100 MG TAB PO SCH (09:10)
[2022-06-27] MEDS ORDERED: THE PO (11:22)
[2022-06-27] MEDS ORDERED: METR-435 PO (11:22)
[2022-06-27] MEDS ORDERED: ACET-9525 PO (11:22)
[2022-06-27] MEDS ORDERED: THIA-34 PO (11:22)
[2022-06-27] MEDS ORDERED: LORA-476 PO (11:22)
[2022-06-27] MEDS ORDERED: CEFU500T73 PO (11:22)
[2022-06-27 12:30] VITALS: BP 107/64
--- NOTE | 2022-06-27 14:00 | NUR ---
DISCHARGE INSTRUCTIONS GIVEN. PT VERBALIZED UNDERSTANDING. IV DISCONTINUED, CATHETER INTACT, NO ACTIVE BLEEDING. CONTACTED DEPARTMENT STORE SALESPERSON REGARDING UBER RIDE. AMBULATED PT OUT TO UBER CAR.
== END 2022-06-27 15:48 | disposition home or self-care (01) | DRG 244 ==
LOC: MED 20:34 → MMU 06-23 02:39 → MTU 06-23 02:39
PROVIDERS: ADMIT Internal Medicine; ATTEND Internal Medicine
DX: K57.80 Diverticulitis of intestine, part unspecified, with perforation and abscess without bleeding (principal); E87.1 Hypo-osmolality and hyponatremia; E88.09 Other disorders of plasma-protein metabolism, not elsewhere classified; F10.20 Alcohol dependence, uncomplicated; E87.6 Hypokalemia; Y90.9 Presence of alcohol in blood, level not specified; Z20.822 Contact with and (suspected) exposure to COVID-19
CPT/HCPCS: 36415; 80048; 80053; 80305; 81001; 83605; 83690; 83735; 84100; 85025; 87040; 87081; 87086; 96361; 96365; 96375; 99285; C9113; G0482; J0696; J1885; J2270; J2405; J2543; J3490; J7030; J7060; Q9967

== ENCOUNTER 2023-07-15 17:24 | Emergency (ER) | payer OTHER ==
[~2023-07-15] VITALS: Ht 170.2 cm; Wt 59.9 kg
[~2023-07-15 17:24] MED LIST: ACET-9525 PO; CEFU500T73 PO; LORA-476 PO; METR-435 PO; THE PO; THIA-34 PO
[2023-07-15 17:38] VITALS: BP 127/79; PULSE 93; RESP 20; TEMP 98.5; O2SAT 100
[2023-07-15] MEDS ORDERED: KETOROLAC 60 MG/2 ML VIAL IM ONE (18:55)
[2023-07-15] MEDS ORDERED: IBUP-2213 PO (19:02)
[2023-07-15 19:21] VITALS: BP 127/79; PULSE 93; RESP 20; TEMP 98.5; O2SAT 100
== END 2023-07-15 19:21 | disposition home or self-care (01) ==
LOC: MED 17:24
DX: M25.511 Pain in right shoulder (principal); Z79.899 Other long term (current) drug therapy; Z79.2 Long term (current) use of antibiotics
CPT/HCPCS: 73030; 96372; 99283; J1885